=== PATIENT | male | born 1990 | race Caucasian/White ===

== ENCOUNTER 2022-11-19 07:21 | Emergency (ER) | payer BC ==
[~2022-11-19] VITALS: Ht 185.4 cm; Wt 95.0 kg
[2022-11-19 08:00] VITALS: BP 128/83
--- NOTE | 2022-11-19 08:44 | NUR ---
Patient to radiology.
[2022-11-19] MEDS ORDERED: AMOX-117 PO (09:45)
== END 2022-11-19 10:16 | disposition home or self-care (01) ==
LOC: ER 07:22
DX: J06.9 Acute upper respiratory infection, unspecified (principal); H66.91 Otitis media, unspecified, right ear; Z79.899 Other long term (current) drug therapy
CPT/HCPCS: 71046; 99283